=== PATIENT | male | born 1985 | race Hispanic/Latino ===

== ENCOUNTER 2020-12-31 15:26 | Emergency (ER) | payer BC, OTHER ==
[~2020-12-31] VITALS: Ht 185.4 cm; Wt 145.1 kg
[2020-12-31] MEDS ORDERED: KETOROLAC TROMETHAMINE 30 MG/ML VIAL IM STA (15:34)
[2020-12-31] MEDS ORDERED: CYCLOBENZAPRINE HCL 10 MG TAB PO ONE (15:45)
[2020-12-31] MEDS ORDERED: IBUPROFEN600 MG PO (15:51)
[2020-12-31] MEDS ORDERED: CYCLOBENZAPRINE5 MG PO (15:51)
[2020-12-31] MEDS ORDERED: LIDOCAINE1 EAC1 TD (15:51)
== END 2020-12-31 19:20 | disposition home or self-care (01) ==
LOC: ER 15:30
DX: M54.6 Pain in thoracic spine (principal); V43.52XA Car driver injured in collision with other type car in traffic accident, initial encounter; Y92.488 Other paved roadways as the place of occurrence of the external cause; F90.9 Attention-deficit hyperactivity disorder, unspecified type
CPT/HCPCS: 71250; 99284; J1885

== ENCOUNTER 2021-06-09 07:21 | Emergency (ER) | payer BC ==
[~2021-06-09] VITALS: Ht 185.4 cm; Wt 145.1 kg
[~2021-06-09 07:21] MED LIST: CYCLOBENZAPRINE5 MG PO; IBUPROFEN600 MG PO; LIDOCAINE1 EAC1 TD
[2021-06-09] MEDS ORDERED: KETOROLAC TROMETHAMINE 30 MG/ML VIAL IM STA (07:41)
[2021-06-09] MEDS ORDERED: DEXAMETHASONE 4 MG TAB PO STA (07:41)
[2021-06-09] MEDS ORDERED: LIDOCAINE 4% PATCH TP STA (07:41)
[2021-06-09] MEDS ORDERED: ACETAMINOPHEN 325 MG TAB PO ONE (07:45)
[2021-06-09] MEDS ORDERED: NAPROXEN250 MG PO (07:50)
[2021-06-09] MEDS ORDERED: LIDOCAINE1 EAC1 EXT (07:50)
[2021-06-09] MEDS ORDERED: CYCLOBENZAPRINE5 MG PO (07:51)
== END 2021-06-09 08:08 | disposition home or self-care (01) ==
LOC: ER 07:30
DX: M54.50 Low back pain, unspecified (principal); M79.18 Myalgia, other site; F90.9 Attention-deficit hyperactivity disorder, unspecified type; F32.A Depression, unspecified; Z87.2 Personal history of diseases of the skin and subcutaneous tissue
CPT/HCPCS: 99282; J1885; J8540